=== PATIENT | male | born 1980 | race Caucasian/White ===

== ENCOUNTER 2023-02-19 11:38 | Observation (INO) | payer OTHER ==
[2023-02-19 12:10] LABS: Absolute Lymphocytes (CBC) 1.2 K/uL (0.7-4.9); Hematocrit 45.9 % (39.6-49.0); MCV 93.1 fL (80-100); MPV 8.3 fL (7.6-11.3); Platelets 276 thou/uL (152-406); RBC Red Blood Cell Count 4.93 M/uL (4.33-5.43)
[2023-02-19] MEDS ORDERED: NA CHLORIDE 0.9% 1,000 ML ONE (12:11)
[2023-02-19] MEDS ORDERED: ASPIRIN 81 MG CHEWABLE TABLET ONE (12:11)
[2023-02-19 12:31] LABS: Bilirubin Total 0.6 mg/dL (0.2-1.0); Potassium 4.1 mEq/L (3.5-5.1); Protein, Total 7.5 g/dL (6.4-8.2); Troponin High Sensitivity 6.4 pg/mL (<58.9)
--- NOTE | 2023-02-19 12:40 | EDPHYS ---
Physician Documentation [facility] Name: Jeremi Ball Age: 42 yrs Sex: Male : 1980 Arrival Date: 02/19/2023 Time: 11:38 Bed 15 Private MD: ED Physician Nam Archibald HPI: 02/19 12:35 This 42 yrs old Male presents to ER via Unassigned with complaints of Chest melisa Pain. 12:35 The patient or guardian reports chest pain that is located primarily in the substernal melisa area. Onset: 2 day(s) ago. The pain radiates to the left arm. Associated signs and symptoms: Pertinent positives: lightheadedness. The chest pain is described as aching, squeezing. Duration: The patient or guardian reports multiple episodes, with no pattern. Severity of pain: At its worst the pain was mild moderate in the emergency department the pain has improved mildly. The patient has experienced similar episodes in the past, a few times. Historical: - Allergies: 13:05 No Known Allergies; me1 - Home Meds: 13:05 None [Active]; me1 - PMHx: 13:05 None; me1 - PSHx: 13:05 ankle surgery; me1 - Immunization history:: Adult Immunizations up to date. - Social history:: Smoking status: Patient denies any tobacco usage or history of. - Family history:: not pertinent. ROS: 12:35 Constitutional: Negative for fever, chills, and weight loss, Eyes: Negative for injury, melisa pain, redness, and discharge, ENT: Negative for injury, pain, and discharge, Neck: Negative for injury, pain, and swelling, Respiratory: Negative for shortness of breath, cough, wheezing, and pleuritic chest pain, Abdomen/GI: Negative for abdominal pain, nausea, vomiting, diarrhea, and constipation, Back: Negative for injury and pain, : Negative for injury, bleeding, discharge, and swelling, MS/Extremity: Negative for injury and deformity, Skin: Negative for injury, rash, and discoloration, Neuro: Negative for headache, weakness, numbness, tingling, and seizure, Psych: Negative for depression, anxiety, suicide ideation, homicidal ideation, and hallucinations, Allergy/Immunology: Negative for hives, rash, and allergies, Endocrine: Negative for neck swelling, polydipsia, polyuria, polyphagia, and marked weight changes, Hematologic/Lymphatic: Negative for swollen nodes, abnormal bleeding, and unusual bruising, 12:35 Cardiovascular: Positive for chest pain, of the chest, Exam: 12:35 Constitutional: This is a well developed, well nourished patient who is awake, alert, melisa and in no acute distress. Head/Face: Normocephalic, atraumatic. Eyes: Pupils equal round and reactive to light, extra-ocular motions intact. Lids and lashes normal. Conjunctiva and sclera are non-icteric and not injected. Cornea within normal limits. Periorbital areas with no swelling, redness, or edema. ENT: Nares patent. No nasal discharge, no septal abnormalities noted. Tympanic membranes are normal and external auditory canals are clear. Oropharynx with no redness, swelling, or masses, exudates, or evidence of obstruction, uvula midline. Mucous membranes moist. Neck: Trachea midline, no thyromegaly or masses palpated, and no cervical lymphadenopathy. Supple, full range of motion without nuchal rigidity, or vertebral point tenderness. No Meningismus. Chest/axilla: Normal chest wall appearance and motion. Nontender with no deformity. No lesions are appreciated. Cardiovascular: Regular rate and rhythm with a normal S1 and S2. No gallops, murmurs, or rubs. Normal PMI, no JVD. No pulse deficits. Respiratory: Lungs have equal breath sounds bilaterally, clear to auscultation and percussion. No rales, rhonchi or wheezes noted. No increased work of breathing, no retractions or nasal flaring. Abdomen/GI: Soft, non-tender, with normal bowel sounds. No distension or tympany. No guarding or rebound. No evidence of tenderness throughout. 12:37 ECG was reviewed by the Attending Physician. [facility] Vital Signs: 12:45 BP 124 / 98; Pulse 63; Resp 18; Temp 98.2(O); Pulse Ox 100% on R/A; Weight 104.33 kg; me1 Height 5 ft. 11 in. ; Pain 0/10; 12:45 Body Mass Index 32.08 (104.33 kg, 180.34 cm) [facility] 12:45 Pain Scale: Adult [facility] MDM: 11:45 Patient medically screened. melisa 12:37 Differential diagnosis: abnormal EKG, acute myocardial infarction, acute pericarditis, melisa anxiety, chest wall pain, congestive heart failure Cholelithiasis esophagitis, gastroesophageal reflux disease (GERD), peptic ulcer disease, pericarditis, pneumonia, pulmonary embolus, stable angina, thoracic aortic disection, unstable angina. HEART Score: History: Slightly Suspicious (0), ECG: Non specific repolarization disturbance / LBTB / PM (1), Age: < or = 45 years (0), Risk Factors: 1 or 2 risk factors (1), [+ Family HX] [Obesity] Troponin: < or = 1 x Normal Limit (0). The patient was given aspirin in the Emergency Department. ISELA Risk Score: TOTAL SCORE = 0. Data reviewed: vital signs, nurses notes, lab test result(s), EKG. Consideration of Admission/Observation Patient was admitted/placed on observation. Escalation of care including admission/observation considered. I considered the following discharge prescriptions or medication management in the emergency department Medications were administered in the Emergency Department. See MAR. Independent interpretation of the following test(s) in the Emergency Department EKG: See my EKG interpretation above. Test considered but Not performed: Ultrasound no 2 d echo. Historians other than the Patient: pt well informed. Care significantly affected by the following chronic conditions: Hypertension. Counseling: I had a detailed discussion with the patient and/or guardian regarding the historical points, exam findings, and any diagnostic results supporting the discharge/admit diagnosis, the presence of at least one elevated blood pressure reading (>120/80) during this emergency department visit, lab results, the need for further work-up and treatment in the hospital. 02/19 11:46 Order name: CBC with Diff; Complete Time: 12:31 [facility] 02/19 11:46 Order name: Comprehensive Metabolic Panel; Complete Time: 12:40 melisa 02/19 11:46 Order name: Troponin High Sensitivity; Complete Time: 12:40 melisa 02/19 12:37 Order name: EKG; Complete Time: 12:37 [facility] 02/19 12:45 Order name: CONS Physician Consult EDFL 02/19 12:37 Order name: EKG - Nurse/Tech; Complete Time: 13:11 melisa EC:37 Rate is 70 beats/min. Rhythm is regular. QRS [place] is Normal. OR interval is normal. QRS melisa interval is normal. QT interval is normal. No Q waves. T waves are Normal. No ST changes noted. Clinical impression: NSR w/ Non-specific ST/T Changes and No evidence of ischemia. Interpreted by me. Reviewed by me. Administered Medications: 12:12 Drug: Aspirin PO Chewable Tablet 81 mg PO once Route: PO; kb3 13:11 Follow up: Response: No adverse reaction me1 12:13 Drug: NS 0.9% IV 500 ml IV at bolus once Route: IV; Rate: bolus; Site: left antecubital;kb3 13:11 Follow up: IV Status: Completed infusion me1 12:13 Drug: NS 0.9% IV 1000 ml IV at 125 ml/hr continuous Route: IV; Rate: 125 ml/hr; Site: kb3 left antecubital; 13:11 Follow up: IV Status: Infusion continued upon transfer me1 Disposition Summary: 02/19/23 12:40 Hospitalization Ordered Notes: Hospitalization Status: Observation melisa Provider: Louis Gee cha Location: Telemetry/MedSurg (observation) melisa Condition: Stable melisa Problem: new melisa Symptoms: have improved melisa Bed/Room Type: Standard melisa Room Assignment: melisa Diagnosis - Chest pain, unspecified melisa - Essential (primary) hypertension melisa Forms: - Medication Reconciliation Form melisa - SBAR form melisa - Leadership Thank You Letter melisa Signatures: Dispatcher [employer] Nam Delgado MD MD cha Attema, Lee, WEIGHT REDUCING TECHNICIAN-C WEIGHT REDUCING TECHNICIAN-Cla1 Felicia Bobo, RN RN kb3 Eleanor Jaimes RN RN me1
--- NOTE | 2023-02-19 12:40 | ER ---
Nurse's Notes [facility] Name: Jeremi Ball Age: 42 yrs Sex: Male : 1980 Arrival Date: 02/19/2023 Time: 11:38 Bed 15 Private MD: Diagnosis: Chest pain, unspecified;Essential (primary) hypertension Presentation: 02/19 12:45 Chief complaint: Patient states: Recently worked up for chest pain that it midsternal, me1 does not radiate, intermittent and lasts for seconds at a time, worst pain is "5/10". Seen by Dr Arias and sent to ER be admitted for medical laboratory technical officer today. 12:45 Coronavirus screen: Vaccine status: Patient reports receiving the 2nd dose of the covid me1 vaccine. Ebola Screen: No symptoms or risks identified at this time. Initial Sepsis Screen: Does the patient meet any 2 criteria? No. Patient's initial sepsis screen is negative. Does the patient have a suspected source of infection? No. Patient's initial sepsis screen is negative. Risk Assessment: Do you want to hurt yourself or someone else? Patient reports no desire to harm self or others. Onset of symptoms is unknown. 12:45 Method Of Arrival: Ambulatory me1 12:45 Acuity: RUI 3 me1 Historical: - Allergies: 13:05 No Known Allergies; me1 - Home Meds: 13:05 None [Active]; me1 - PMHx: 13:05 None; me1 - PSHx: 13:05 ankle surgery; me1 - Immunization history:: Adult Immunizations up to date. - Social history:: Smoking status: Patient denies any tobacco usage or history of. - Family history:: not pertinent. Screenin:07 [facility] ED Fall Risk Assessment (Adult) History of falling in the last 3 months, me1 including since admission No falls in past 3 months (0 pts) Confusion or Disorientation No (0 pts) Intoxicated or Sedated No (0 pts) Impaired Gait No (0 pts) Mobility Assist Device Used No (0 pt) Altered Elimination No (0 pt) Score/Fall Risk Level 0 - 2 = Low Risk Maintained a safe environment, Provided non-skid footwear, Hourly rounding (assess needs \\T\\ fall precautionary measures) done. Abuse screen: Denies threats or abuse. Nutritional screening: No deficits noted. Tuberculosis screening: No symptoms or risk factors identified. Assessment: 13:07 General: Appears well groomed, well developed, well nourished, Behavior is calm, me1 cooperative, appropriate for age, Reports Recently worked up for chest pain that it midsternal, does not radiate, intermittent and lasts for seconds at a time, worst pain is "5/10". Denies pain at this time. Pain: Complains of pain in chest Pain does not radiate. Pain currently is 0 out of 10 on a pain scale. at worst was 5 out of 10 on a pain scale. Pain began Is intermittent, lasting a few seconds. Neuro: Level of Consciousness is awake, alert, obeys commands, Oriented to person, place, time, situation, Appropriate for age. Cardiovascular: Capillary refill < 3 seconds Patient's skin is warm and dry. Cardiovascular: Rhythm is sinus rhythm. Respiratory: Airway. Respiratory: Respiratory effort is even, unlabored, Respiratory pattern is regular, symmetrical. Vital Signs: 12:45 BP 124 / 98; Pulse 63; Resp 18; Temp 98.2(O); Pulse Ox 100% on R/A; Weight 104.33 kg; me1 Height 5 ft. 11 in. ; Pain 0/10; 12:45 Body Mass Index 32.08 (104.33 kg, 180.34 cm) me1 12:45 Pain Scale: Adult me1 ED Course: 11:44 Patient arrived in ED. bc6 11:45 Nam Archibald MD is Attending Physician. melisa 12:00 Troponin High Sensitivity Sent. bc6 12:00 Comprehensive Metabolic Panel Sent. bc6 12:00 CBC with Diff Sent. bc6 12:00 Inserted saline lock: 20 gauge in left antecubital area, using aseptic technique. Blood bc6 collected. 12:25 Arm band placed on. ll1 12:39 Louis Gee MD is Hospitalizing Provider. [facility] 12:44 Eleanor Jaimes RN is Primary Nurse. me1 13:05 Triage completed. me1 13:07 No provider procedures requiring assistance completed. Patient maintains SpO2 me1 saturation greater than 95% on room air. 13:07 Patient has correct armband on for positive identification. Placed in gown. Bed in low me1 position. Call light in reach. Side rails up X2. Provided Education on: POC. Verbalized understanding. . Client placed on continuous cardiac and pulse oximetry monitoring. NIBP monitoring applied. groundwater monitoring technician on. Pulse ox on. Administered Medications: 12:12 Drug: Aspirin PO Chewable Tablet 81 mg PO once Route: PO; kb3 13:11 Follow up: Response: No adverse reaction me1 12:13 Drug: NS 0.9% IV 500 ml IV at bolus once Route: IV; Rate: bolus; Site: left antecubital;kb3 13:11 Follow up: IV Status: Completed infusion me1 12:13 Drug: NS 0.9% IV 1000 ml IV at 125 ml/hr continuous Route: IV; Rate: 125 ml/hr; Site: kb3 left antecubital; 13:11 Follow up: IV Status: Infusion continued upon transfer me1 Medication: 13:07 VIS not applicable for this client. me1 Outcome: 12:40 Decision to Hospitalize by Provider. [facility] 13:12 Patient left the ED. me1 Signatures: Nam Archibald MD MD cha Lewis, Lynsay, RN RN ll1 Felicia Bobo, ELIANA RN kb3 Nataliya Watson 6 Eleanor Jaimes RN RN me1 Corrections: (The following items were deleted from the chart) 13:07 12:45 Chief complaint: Patient states: Recently worked up for chest pain that it me1 midsternal, does not radiate, intermittent and lasts for seconds at a time, worst pain is "5/10". Seen by Dr Arias and sent to ER be admitted for medical laboratory technical officer today. me1
[2023-02-19] MEDS ORDERED: NITROGLYCERIN/D5W 25 MG/250 ML BTL IV ONE (12:42)
[2023-02-19] MEDS ORDERED: HEPA 1000U/500MLS 2,000 UNIT/1,000 ML BAG IV ONE (12:42)
[2023-02-19] MEDS ORDERED: LIDOCAINE 1% 20 ML MDV ONE (12:42)
[2023-02-19] MEDS ORDERED: VERAPAMIL HCL 10 MG/4 ML VIAL IV ONE (12:42)
[2023-02-19] MEDS ORDERED: FENTANYL CITR 100 MCG/2 ML ONE (12:43)
[2023-02-19] MEDS ORDERED: MIDAZOLAM HCL 2 MG/2 ML INJ ONE (12:43)
[2023-02-19] MEDS ORDERED: HEPARIN 10,000 UNIT/10 ML VIAL IV ONE (12:44)
[2023-02-19] MEDS ORDERED: HEPARIN 5000 UNIT/ML 1 ML VIAL ONE (12:44)
[2023-02-19] MEDS ORDERED: ASPIRIN 325 MG TAB ONE (12:45)
[2023-02-19] MEDS ORDERED: CLOPIDOGREL 75 MG TABLET ONE (12:45)
--- NOTE | 2023-02-19 12:53 | P.HP ---
Certification for Inpatient Patient admitted to: Observation With expected LOS: <2 Midnights Patient will require the following post-hospital care: None Practitioner: I am a practitioner with admitting privileges, knowledge of patient current condition, hospital course, and medical plan of care. Services: Services provided to patient in accordance with Admission requirements found in Title 42 Section 412.3 of the Code of Federal Regulations Patient History Date of Service: 02/19/23 Reason for admission: Chest pain History of Present Illness: 42-year-old otherwise healthy male presents the emergency department chief complaint of chest pain. He reports ongoing intermittent chest pain for the last 1 week or so. His episodes last for few seconds at a time typically but is having more persistent pain at the moment. Pain is described as pressure, nonradiating. He was evaluated in the emergency department his labs were unremarkable, EKG without STEMI criteria. Cardiology was consulted and recommendation was for heart catheterization. Patient admitted under observation for ACS rule out/heart catheterization. - Past Medical/Surgical History -: None -: Right ankle surgery -: Septal deviation repair Psychosocial/ Personal History: Works as a agriculture technician, lives at home with family - Family History Family History: Reviewed- Non-Contributory - Social History Smoking Status: Never smoker Alcohol use: No CD- Drugs: No Caffeine use: Yes Place of Residence: Home Review of Systems 10-point ROS is otherwise unremarkable Cardiovascular: Chest Pain Physical Examination - Physical Exam General: Alert, In no apparent distress, Oriented x3 HEENT: Atraumatic, PERRLA, EOMI Neck: Supple, 2+ carotid pulse no bruit, No LAD Respiratory: Clear to auscultation bilaterally, Normal air movement Cardiovascular: Regular rate/rhythm, Normal S1 S2 Gastrointestinal: Normal bowel sounds Musculoskeletal: No tenderness Integumentary: No rashes Neurological: Normal speech, Normal strength at 5/5 x4 extr, Normal tone, Normal affect - Studies Laboratory Data (last 24 hrs) 02/19/23 02/19/23 12:00 12:00 WBC 5.80 Hgb 15.9 Hct 45.9 Plt Count 276 Sodium 139 Potassium 4.1 BUN 9 Creatinine 0.83 Glucose 87 Total Bilirubin 0.6 AST 23 ALT 54 Alkaline Phosphatase 64 Assessment and Plan - Plan Assessment: Chest pain rule out ACS Plan: Chest pain rule out ACS Evaluated by cardiology who recommends heart catheterization currently being transported to Tools Administrator Await further recommendations post heart catheterization DVT PPX: Lovenox Code status: Full Dispo 24 hours Discharge Plan: Home Plan to discharge in: 24 Hours - Advance Directives Does patient have a Living Will: No Does patient have a Durable POA for Healthcare: No - Code Status/Comfort Care Code Status Assessed: Yes (Full code) Critical Care: No Time Spent Managing Pts Care (In Minutes): 55
[2023-02-19] MEDS ORDERED: NA CHLORIDE 0.9% 500 ML ONE (13:11)
[2023-02-19] MEDS ORDERED: TICAGRELOR 90 MG TABLET PO ONE (13:54)
[2023-02-19] MEDS ORDERED: ATROPINE SULF 1 MG/10 ML SYR IV ONE (13:54)
--- NOTE | 2023-02-19 15:07 | OP ---
Date of Procedure: 02/19/2023 Surgeon: TRICIA POWELL Procedures Performed: 1.Selective coronary angiogram. 2.Left heart catheterization. Indication: Unstable angina. Access: Right radial artery 6-[place] closed with TR band. Complications: None. Bleeding: Less than 20 mL. Anesthesia: Total sedation time was 45 minutes. Used fentanyl and Versed. Description Of Procedure: After risks, benefits, and alternatives were explained, patient agreed to procedure and signed informed consent. Patient was brought into the cardiac catheterization laborato ry, prepped and draped in usual sterile fashion. Then I accessed right radial artery using pediatric micropuncture kit, placed a 6-[place] Slender sheath and took 5-[place] 5.0 catheter into the ao rtic root, engaged the left main and then the right coronary artery, took standard views and catheter was pushed over the wire into the LV, measured the LVEDP, pullback did not record any gradient, then I removed the catheter and the sheath, placed TR band with good hemostasis. Findings: 1.Left main; large with ostial 10%. 2.LAD; very large, in the proximal segment and mid segment, the artery either tapers down or there i s a long segment of 40% stenosis and diagonal branches are normal. Rest of the LAD is normal. 3.Left circumflex; very large and dominant and supplies the entire inferior wall and no abnormalitie s. 4.RCA; small, nondominant and normal. 5.Elevated LVEDP at 15 mmHg. Conclusion: Mild nonobstructive coronary artery disease. Recommendation: 1.Medical management. 2.Elevated LVEDP, needs better blood pressure control. SR/MODL Voice ID: [id number] Report ID: [id number]
[2023-02-19] MEDS ORDERED: ACETAMINOPHEN 325 MG TABLET ONE (15:56)
[2023-02-19 16:32] VITALS: BMI 32.1
[2023-02-19] MEDS ORDERED: HYDROCODONE/APAP 5/325 MG TAB PO PRN (17:25)
[2023-02-19] MEDS ORDERED: ONDANSETRON 4 MG/2 ML VIAL IV PRN (17:35)
[2023-02-19] MEDS ORDERED: MORPHINE 4 MG/ML SYR IV PRN (17:35)
[2023-02-19] MEDS ORDERED: ACETAMINOPHEN 325 MG TABLET PO PRN (17:39)
[2023-02-19] MEDS ORDERED: DIPHENHYDRAMINE 50 MG/ML VIAL IV ONE (17:45)
[2023-02-19] MEDS ORDERED: KETOROLAC 30 MG/ML INJ IV ONE (17:45)
[2023-02-19] MEDS: NA CHLORIDE 0.9% 1,000 ML IV SCH (17:55)
[2023-02-20] MEDS: NA CHLORIDE 0.9% 1,000 ML IV SCH (03:36)
[2023-02-20 04:12] VITALS: O2SAT 97
[2023-02-20 06:58] LABS: Absolute Lymphocytes (CBC) 1.9 K/uL (0.7-4.9); Hematocrit 42.4 % (39.6-49.0); Lymphocytes % 31.2 % (15.3-44.8); MCV 92.6 fL (80-100); MPV 8.2 fL (7.6-11.3); Platelets 248 thou/uL (152-406); RBC Red Blood Cell Count 4.57 M/uL (4.33-5.43)
[2023-02-20 07:15] LABS: Potassium 4.1 mEq/L (3.5-5.1)
[2023-02-20 08:15] VITALS: BP 147/85
[2023-02-20] MEDS ORDERED: ASPIRIN EC 81 MG TAB PO SCH (09:00)
[2023-02-20] MEDS ORDERED: lisinopriL 10 MG TAB PO SCH (09:00)
[2023-02-20 09:18] VITALS: TEMP 97.1
--- NOTE | 2023-02-20 09:48 | P.DS ---
Admission Date: 02/19/23 Discharge Date: 02/20/23 Reason for Admission: Chest pain Consultations: CardiologyDr. Arias Procedures: Heart catheterization 02/19/2023 Brief History of Present Illness: 42-year-old otherwise healthy male presents the emergency department chief complaint of chest pain. He reports ongoing intermittent chest pain for the last 1 week or so. His episodes last for few seconds at a time typically but is having more persistent pain at the moment. Pain is described as pressure, nonradiating. He was evaluated in the emergency department his labs were unremarkable, EKG without STEMI criteria. Cardiology was consulted and recommendation was for heart catheterization. Patient admitted under observation for ACS rule out/heart catheterization. Hospital Course: Assessment: Chest pain rule out ACS Headache Patient was admitted to the hospital for chest pain, headache. He was evaluated by cardiology and underwent cardiac catheterization on 02/19/2023. He had mild, nonobstructive CAD. Patient also reported he been experiencing a headache for approximate last 1 week or so with associated worsening sinus drainage/cough. He had a recent CT scan at stand-alone emergency department which was negative for acute findings. Of note blood pressure was also elevated 130s to 150s systolic during hospitalization. At discharge patient will be prescribed lisinopril 10 mg daily-he should keep a blood pressure log and follow-up with primary care doctor for further adjustment Discussed headache/sinus drainage symptoms and recommend Flonase inhaled daily for at least the next 2 months If headaches persist and are unrelieved or worsening recommend follow-up with PCP, possibly neurology consult You may take previously prescribed diclofenac sodium as needed for pain or other NSAIDs like ibuprofen, Aleve as well as Tylenol Avoid frequent/regular use of NSAIDs including diclofenac, ibuprofen, Aleve <Antwon Lentz - Last Filed: 02/20/23 09:46> Admission Date: 02/19/23 Discharge Date: 02/20/23 <Louis Gee - Last Filed: 02/20/23 21:40> Disposition: ROUTINE DISCHARGE Discharge Condition: GOOD Vital Signs/Physical Exam: Temp Pulse Resp BP Pulse Ox 97.1 F 63 14 147/85 H 99 02/20/23 07:00 02/20/23 07:00 02/20/23 08:11 02/20/23 08:11 02/20/23 08:11 General: Alert, In no apparent distress, Oriented x3 HEENT: Atraumatic, PERRLA Neck: Supple Respiratory: Normal air movement Cardiovascular: Regular rate/rhythm Gastrointestinal: Non-distended Musculoskeletal: No tenderness Integumentary: No cyanosis Neurological: Normal speech, Normal affect Laboratory Data at Discharge: WBC 6.20 thou/uL (4.3-10.9) 02/20/23 06:40 Hgb 14.6 g/dL (13.6-17.9) D 02/20/23 06:40 Hct 42.4 % (39.6-49.0) 02/20/23 06:40 Plt Count 248 thou/uL (152-406) 02/20/23 06:40 Sodium 142 mEq/L (136-145) 02/20/23 06:40 Potassium 4.1 mEq/L (3.5-5.1) 02/20/23 06:40 BUN 10 mg/dL (7-18) 02/20/23 06:40 Creatinine 0.90 mg/dL (0.70-1.30) 02/20/23 06:40 Glucose 91 mg/dL (74-106) 02/20/23 06:40 Total Bilirubin 0.6 mg/dL (0.2-1.0) 02/19/23 12:00 AST 23 U/L (15-37) 02/19/23 12:00 ALT 54 U/L (16-61) 02/19/23 12:00 Alkaline Phosphatase 64 U/L (45-117) 02/19/23 12:00 <Antwon Lentz - Last Filed: 02/20/23 09:46> Vital Signs/Physical Exam: Temp Pulse Resp BP Pulse Ox 97.1 F 63 14 147/85 H 99 02/20/23 07:00 02/20/23 07:00 02/20/23 08:11 02/20/23 08:11 02/20/23 08:11 Laboratory Data at Discharge: WBC 6.20 thou/uL (4.3-10.9) 02/20/23 06:40 Hgb 14.6 g/dL (13.6-17.9) D 02/20/23 06:40 Hct 42.4 % (39.6-49.0) 02/20/23 06:40 Plt Count 248 thou/uL (152-406) 02/20/23 06:40 Sodium 142 mEq/L (136-145) 02/20/23 06:40 Potassium 4.1 mEq/L (3.5-5.1) 02/20/23 06:40 BUN 10 mg/dL (7-18) 02/20/23 06:40 Creatinine 0.90 mg/dL (0.70-1.30) 02/20/23 06:40 Glucose 91 mg/dL (74-106) 02/20/23 06:40 Total Bilirubin 0.6 mg/dL (0.2-1.0) 02/19/23 12:00 AST 23 U/L (15-37) 02/19/23 12:00 ALT 54 U/L (16-61) 02/19/23 12:00 Alkaline Phosphatase 64 U/L (45-117) 02/19/23 12:00 <Louis Gee - Last Filed: 02/20/23 21:40> Diet: AHA Activity: Ad [place] Time spent managing pt's care (in minutes): 30 <Antwon Lentz - Last Filed: 02/20/23 09:46> Physician Review: Patient Assessed, Agree with Above Assessment and Plan (Patient seen/examined on rounds this morning. Plan reviewed with Antwon Lentz GLOVE MACHINE OPERATOR, as noted above.) <Louis Gee - Last Filed: 02/20/23 21:40> Home Medications: lisinopriL [Lisinopril] 10 mg PO DAILY #30 tab 02/20/23 New Medications: lisinopriL [Lisinopril] 10 mg PO DAILY #30 tab Physician Discharge Instructions: PROBLEM: status post cardiac cath, chest pain GOAL: Clear understanding of disease process INSTRUCTIONS: Please follow-up your primary care doctor within 1 to 2 weeks Follow-up with cardiologyDr. Arias in 2 to 4 weeks Diet: AHA Activity: Per post heart cath instructions Patient was admitted to the hospital for chest pain, headache. He was evaluated by cardiology and underwent cardiac catheterization on 02/19/2023. He had mild, nonobstructive CAD. Patient also reported he been experiencing a headache for approximate last 1 week or so with associated worsening sinus drainage/cough. He had a recent CT scan at stand-alone emergency department which was negative for acute findings. Of note blood pressure was also elevated 130s to 150s systolic during hospitalization. At discharge patient will be prescribed lisinopril 10 mg daily-he should keep a blood pressure log and follow-up with primary care doctor for further adjustment Discussed headache/sinus drainage symptoms and recommend Flonase inhaled daily for at least the next 2 months If headaches persist and are unrelieved or worsening recommend follow-up with P CP, possibly neurology consult You may take previously prescribed diclofenac sodium as needed for pain or other NSAIDs like ibuprofen, Aleve as well as Tylenol Avoid frequent/regular use of NSAIDs including diclofenac, ibuprofen, Aleve Followup: Nam Archibald MD [Primary Care Provider] -
--- NOTE | 2023-02-22 13:48 | EKG ---
Test Date: 2023-02-19 Test Time: 12:52:36 Make Up Girl: MEASUREMENT RESULTS: Intervals: Rate: 62 MA: 184 QRSD: 96 QT: 422 QTc: 428 [place]: P: 10 MA: 184 QRS: 2 T: 59 INTERPRETIVE STATEMENTS: Normal sinus rhythm Normal ECG Compared to ECG 12/30/2008 17:53:49 Sinus bradycardia no longer present Electronically Signed On 02-22-23 13:41:36 NETWORK DEVELOPMENT COORDINATOR by Wilfrido Arias
== END 2023-02-20 10:21 | disposition home or self-care (01) ==
LOC: ER 11:38 → ERHOLD 12:57 → 4TH 15:54
PROVIDERS: ADMIT Hospitalist; ATTEND Hospitalist
PROC: 4A023N7 Measurement of Cardiac Sampling and Pressure, Left Heart, Percutaneous Approach (ICD-10-PCS; principal; 2023-02-19)
PROC: B2111ZZ Fluoroscopy of Multiple Coronary Arteries using Low Osmolar Contrast (ICD-10-PCS; 2023-02-19)
DX: I25.110 Atherosclerotic heart disease of native coronary artery with unstable angina pectoris (principal); R51.9 Headache, unspecified; R05.9 Cough, unspecified; I10 Essential (primary) hypertension
CPT/HCPCS: 93005; 85025 ×2; 80048; 36415; 84484; 80053; 93458; 76937; 96360; 99285; C1893; Q9966; J1644; J2001; J1200; J2250; J3010; G0378 ×5; J7040; J7030 ×3; 99152; 99153; J0461

== ENCOUNTER 2024-06-10 14:21 | Emergency (ER) | payer OTHER ==
[2024-06-10] MEDS ORDERED: ONDANSETRON 4 MG/2 ML VIAL ONE (14:45)
[2024-06-10] MEDS ORDERED: KETOROLAC 30 MG/ML INJ ONE (14:45)
[2024-06-10] MEDS ORDERED: NA CHLORIDE 0.9% 500 ML ONE (14:46)
--- NOTE | 2024-06-10 14:55 | RAD REPORT ---
EXAMINATION: Head Brain Wo Cont CLINICAL INDICATION: Male, 43 years old.HTN, HEADACHE TECHNIQUE: Axial CT images from the skull base to the vertex without intravenous contrast. Coronal an d sagittal reformatted images were created from the data set. One or more of the following dose reduction techniques were used: Automated exposure control, adjustment of the mA and/or kV according to patient size, and/or iterative reconstruction. Unless otherwise specified, incidental findings do not require dedicated imaging follow-up. [id number]. COMPARISON: No prior exam. FINDINGS: INTRACRANIAL: No acute intracranial hemorrhage. No hydrocephalus. No mass effect or midline shift. No significant white matter disease. VASCULATURE: No visualized abnormalities in the arteries or dural venous sinuses. SCALP/SKULL: No calvarial fracture identified. No acute soft tissue abnormality. SINUSES: Mucous retention cyst in left maxillary sinus. Trace right maxillary sinus thickening. No si gnificant mastoid fluid. IMPRESSION: No acute intracranial abnormality.
--- NOTE | 2024-06-10 14:57 | RAD REPORT ---
EXAM: Sinus Wo Cont HISTORY: PAIN COMPARISON: None TECHNIQUE: Multiple contiguous axial images were obtained and a CT of the face without contrast. Sagi ttal and coronal reformats were performed. Automated exposure control, adjustment of the mA and/or kV according to patient size, and/or iterative reconstruction FINDINGS: No facial fractures are identified. No facial soft tissue swelling is seen. The globes and retrobulbar soft tissues are unremarkable. .Mucous retention cyst in the left maxillary sinus. Trace right maxillary sinus thickening. Patent os tiomeatal units. Frontal sinuses, ethmoid air cells, and sphenoid sinuses are well aerated. No air-fluid levels. The mastoid air cells are well aerated. Visualized intracranial structures are unremarkable. IMPRESSION: Mild chronic paranasal sinus disease without evidence of acute sinusitis. The limited par anasal sinus thickening is probably not the source of the patient's symptoms.
--- NOTE | 2024-06-10 15:08 | RAD REPORT ---
EXAM: Chest Single View HISTORY: 43 years Male CHEST PAIN COMPARISON: 12/30/2008 FINDINGS: LUNGS/PLEURA: The lungs are clear. No pleural effusions or pneumothorax. No pulmonary edema. CARDIAC/MEDIASTINUM: The cardiac silhouette is within normal limits. UPPER ABDOMEN: No significant abnormality. BONES: No acute abnormality. LINES/TUBES/OTHER: N/A IMPRESSION: No evidence of acute cardiopulmonary disease.
[2024-06-10 15:25] LABS: Absolute Lymphocytes (CBC) 0.8 K/uL (0.7-4.9); Absolute Monocytes 0.8 K/uL (0.1-1.3); Absolute Neutrophil 9.2 K/uL (1.8-8.0); Basophils % 0.1 % (0-1.3); Eosinophils % 0.1 % (0-4.4); Hemoglobin 15.3 g/dL (13.6-17.9); Lymphocytes % 7.8 % (15.3-44.8); MCH 32.5 pg (27.0-35.0); MCHC 34.7 g/dL (32.0-36.0); MCV 93.7 fL (80-100); MPV 8.8 fL (7.6-11.3); Platelets 251 thou/uL (152-406); RBC Red Blood Cell Count 4.69 M/uL (4.33-5.43); Red Cell Distribution Width 13.6 % (12.1-15.2)
[2024-06-10 15:32] LABS: ALT/SGPT 42 U/L (16-61); AST/SGOT 16 U/L (15-37); Albumin 4.3 g/dL (3.4-5.0); Albumin/Globulin Ratio 1.2 (1.1-1.8); Alkaline Phosphatase 57 U/L (45-117); Anion Gap 6.1 mEq/L (5.0-15.0); BUN Blood Urea Nitrogen 16 mg/dL (7-18); Bicarbonate 30 mEq/L (21-32); Bilirubin Total 0.4 mg/dL (0.2-1.0); Globulin 3.6 g/dL (2.3-3.5); Glomerular Filtration Rate 95 ml/min (=/>90); Glucose Level 118 mg/dL (74-106); Potassium 4.1 mEq/L (3.5-5.1); Protein, Total 7.9 g/dL (6.4-8.2); Sodium Level 139 mEq/L (136-145); Troponin High Sensitivity < 3.0 pg/mL (<58.9)
--- NOTE | 2024-06-10 16:18 | ER ---
Nurse's Notes [facility] Name: Jeremi Ball Age: 43 yrs Sex: Male : 1980 Arrival Date: 06/10/2024 Time: 14:21 Bed 11 Private MD: Diagnosis: Chest pain, unspecified;Headache;Essential (primary) hypertension;Chronic sinusitis, unspecified Presentation: 06/10 14:36 Chief complaint: Patient states: chest discomfort, flushed face, headache, does not kj2 feel well. Coronavirus screen: Client denies travel out of the [place] in the last 14 days. Ebola Screen: No symptoms or risks identified at this time. Initial Sepsis Screen: Does the patient meet any 2 criteria? No. Patient's initial sepsis screen is negative. Does the patient have a suspected source of infection? No. Patient's initial sepsis screen is negative. Risk Assessment: Do you want to hurt yourself or someone else? Patient reports no desire to harm self or others. Onset of symptoms was June 08, 2024. 14:36 Method Of Arrival: Ambulatory kj2 14:36 Acuity: RUI 3 kj2 Triage Assessment: 14:39 General: Appears in no apparent distress. Behavior is calm, cooperative. Pain: kj2 Complains of pain in chest, forehead Pain currently is 6 out of 10 on a pain scale. Neuro: Level of Consciousness is awake, alert, obeys commands, Oriented to person, place, time, situation. Cardiovascular: Patient's skin is warm and dry. Respiratory: Airway is patent Respiratory effort is even, unlabored. GI: No signs and/or symptoms were reported involving the gastrointestinal system. : No signs and/or symptoms were reported regarding the genitourinary system. Historical: - Allergies: 14:39 No Known Allergies; kj2 - PSHx: 15:21 ankle surgery; kj2 - Immunization history:: Adult Immunizations unknown. - Infectious Disease History:: Denies. - Social history:: Smoking status: Patient denies any tobacco usage or history of. Screenin:45 [facility] ED Fall Risk Assessment (Adult) History of falling in the last 3 months, kj2 including since admission No falls in past 3 months (0 pts) Confusion or Disorientation No (0 pts) Intoxicated or Sedated No (0 pts) Impaired Gait No (0 pts) Mobility Assist Device Used No (0 pt) Altered Elimination No (0 pt) Score/Fall Risk Level 0 - 2 = Low Risk Maintained a safe environment, Hourly rounding (assess needs \T\ fall precautionary measures) done. Abuse screen: Denies threats or abuse. Denies injuries from another. Nutritional screening: No deficits noted. Tuberculosis screening: No symptoms or risk factors identified. Assessment: 14:40 General: see triage assessment. kj2 14:40 Pain: Pain does not radiate. Pain began 2-3 days ago. kj2 15:39 Reassessment: Patient appears in no apparent distress at this time. Patient and/or kj2 family updated on plan of care and expected duration. Pain level reassessed. Patient is alert, oriented x 3, equal unlabored respirations, skin warm/dry/pink. Vital Signs: 14:36 BP 140 / 88; Pulse 70; Resp 20; Temp 97.9; Pulse Ox 100% ; Weight 106.59 kg; Height 5 kj2 ft. 11 in. ; 15:40 BP 122 / 81; Pulse 66; Resp 18; Temp 98; Pulse Ox 100% on R/A; kj2 16:35 BP 121 / 82; Pulse 68; Resp 20; Temp 98; Pulse Ox 100% on R/A; kj2 14:36 Body Mass Index 32.78 (106.59 kg, 180.34 cm) kj2 Eric Coma Score: 15:16 Eye Response: spontaneous(4). Motor Response: obeys commands(6). Verbal Response: melisa oriented(5). Total: 15. ED Course: 14:27 Patient arrived in ED. ll1 14:27 Nam Archibald MD is Attending Physician. melisa 14:35 Kavya Tompkins, ELIANA is Primary Nurse. kj2 14:39 Triage completed. kj2 14:47 CT Sinus Wo Cont In Process Unspecified. EDMS 14:47 Head Brain Wo Cont In Process Unspecified. EDMS 14:55 Inserted saline lock: 20 gauge in right antecubital area, using aseptic technique. kj2 Blood collected. Flushed with 10 mL NS. 15:04 Patient has correct armband on for positive identification. Bed in low position. Call kj2 light in reach. Provided Education on: calllight. Client placed on continuous cardiac and pulse oximetry monitoring. NIBP monitoring applied. monitor car operator on. Pulse ox on. 15:05 Arm band placed on Patient placed in an exam room, on a stretcher. kj2 15:06 Chest Single View XRAY In Process Unspecified. EDNJ 15:20 EKG done, by ED staff, reviewed by Nam Archibald MD. kj2 16:26 No provider procedures requiring assistance completed. IV discontinued, intact, kj2 bleeding controlled, No redness/swelling at site. Pressure dressing applied. Patient maintains SpO2 saturation greater than 95% on room air. Administered Medications: 15:03 Drug: NS 0.9% IV 500 ml 500 ml IV at 1 bolus once; to be given as a bolus over 30 kj2 minutes Volume: 500 ml; Route: IV; Rate: 1 bolus; Site: right antecubital; 15:03 Drug: Ketorolac IVP 30 mg IVP once Route: IVP; Site: right antecubital; kj2 16:27 Follow up: Response: No adverse reaction kj2 15:03 Drug: Ondansetron IVP 4 mg IVP once; over 2 minutes Route: IVP; Site: right antecubital;kj2 16:27 Follow up: Response: No adverse reaction kj2 Medication: 15:05 VIS not applicable for this client. kj2 Outcome: 16:17 Discharge ordered by . melisa 16:26 Discharged to home ambulatory, kj2 16:26 Condition: stable 16:26 Discharge instructions given to patient, Instructed on discharge instructions, follow up and referral plans. Demonstrated understanding of instructions, follow-up care, Prescriptions given X 3, 16:44 Patient left the ED. kj2 Signatures: Dispatcher [employer] EDNJ Nam Archibald MD MD cha Lewis, Lynsay, RN RN ll1 Kavya Tompkins, ELIANA RN kj2 Corrections: (The following items were deleted from the chart) 15:39 15:20 Reassessment: Patient appears in no apparent distress at this time. Patient kj2 and/or family updated on plan of care and expected duration. Pain level reassessed. Patient is alert, oriented x 3, equal unlabored respirations, skin warm/dry/pink. kj2
--- NOTE | 2024-06-10 16:18 | EDPHYS ---
Physician Documentation [facility] Name: Jeremi Ball Age: 43 yrs Sex: Male : 1980 Arrival Date: 06/10/2024 Time: 14:21 Bed 11 Private MD: ED Physician Nam Archibald HPI: 06/10 15:13 This 43 yrs old Male presents to ER via Ambulatory with complaints of Chest melisa Pain, Headache. 15:13 The patient or guardian reports chest pain that is located primarily in the anterior melisa chest wall, left. Onset: 1 week(s) ago. The pain does not radiate. The chest pain is described as aching. Historical: - Allergies: 14:39 No Known Allergies; kj2 - PSHx: 15:21 ankle surgery; kj2 - Immunization history:: Adult Immunizations unknown. - Infectious Disease History:: Denies. - Social history:: Smoking status: Patient denies any tobacco usage or history of. ROS: 15:14 Constitutional: Negative for fever, chills, and weight loss, Eyes: Negative for injury, melisa pain, redness, and discharge, Neck: Negative for injury, pain, and swelling, Cardiovascular: Negative for chest pain, palpitations, and edema, Respiratory: Negative for shortness of breath, cough, wheezing, and pleuritic chest pain, Abdomen/GI: Negative for abdominal pain, nausea, vomiting, diarrhea, and constipation, Back: Negative for injury and pain, : Negative for injury, bleeding, discharge, and swelling, MS/Extremity: Negative for injury and deformity, Skin: Negative for injury, rash, and discoloration, Neuro: Negative for headache, weakness, numbness, tingling, and seizure, Psych: Negative for depression, anxiety, suicide ideation, homicidal ideation, and hallucinations, Allergy/Immunology: Negative for hives, rash, and allergies, Endocrine: Negative for neck swelling, polydipsia, polyuria, polyphagia, and marked weight changes, 15:14 ENT: Positive for rhinorrhea, sinus congestion, sinus pain, sore throat, 15:14 Neck: Negative for injury or acute deformity, mass, pain with movement, pain at rest, stiffness, swelling, swollen nodes, tenderness, bony tenderness, 15:14 Cardiovascular: Positive for palpitations, Negative for chest pain, 15:14 Respiratory: Positive for cough, 15:14 Abdomen/GI: Negative for abdominal pain, nausea and vomiting, 15:14 MS/extremity: Negative for decreased range of motion, pain, swelling, tenderness, Exam: 15:16 Constitutional: This is a well developed, well nourished patient who is awake, alert, melisa and in no acute distress. Head/Face: Normocephalic, atraumatic. Eyes: Pupils equal round and reactive to light, extra-ocular motions intact. Lids and lashes normal. Conjunctiva and sclera are non-icteric and not injected. Cornea within normal limits. Periorbital areas with no swelling, redness, or edema. ENT: Nares patent. No nasal discharge, no septal abnormalities noted. Tympanic membranes are normal and external auditory canals are clear. Oropharynx with no redness, swelling, or masses, exudates, or evidence of obstruction, uvula midline. Mucous membranes moist. Neck: Trachea midline, no thyromegaly or masses palpated, and no cervical lymphadenopathy. Supple, full range of motion without nuchal rigidity, or vertebral point tenderness. No Meningismus. Chest/axilla: Normal chest wall appearance and motion. Nontender with no deformity. No lesions are appreciated. Cardiovascular: Regular rate and rhythm with a normal S1 and S2. No gallops, murmurs, or rubs. Normal PMI, no JVD. No pulse deficits. Respiratory: Lungs have equal breath sounds bilaterally, clear to auscultation and percussion. No rales, rhonchi or wheezes noted. No increased work of breathing, no retractions or nasal flaring. Abdomen/GI: Soft, non-tender, with normal bowel sounds. No distension or tympany. No guarding or rebound. No evidence of tenderness throughout. Back: No spinal tenderness. No costovertebral tenderness. Full range of motion. Skin: Warm, dry with normal turgor. Normal color with no rashes, no lesions, and no evidence of cellulitis. MS/ Extremity: Pulses equal, no cyanosis. Neurovascular intact. Full, normal range of motion., bilateral aka Neuro: Awake and alert, GCS 15, oriented to person, place, time, and situation. Cranial nerves II-XII grossly intact. Motor strength 5/5 in all extremities. Sensory grossly intact. Cerebellar exam normal. Normal gait. Psych: Awake, alert, with orientation to person, place and time. Behavior, mood, and affect are within normal limits. 15:16 ECG was reviewed by the Attending Physician. 15:20 ECG was reviewed by the Attending Physician. [facility] Vital Signs: 14:36 BP 140 / 88; Pulse 70; Resp 20; Temp 97.9; Pulse Ox 100% ; Weight 106.59 kg; Height 5 kj2 ft. 11 in. ; 15:40 BP 122 / 81; Pulse 66; Resp 18; Temp 98; Pulse Ox 100% on R/A; kj2 16:35 BP 121 / 82; Pulse 68; Resp 20; Temp 98; Pulse Ox 100% on R/A; kj2 14:36 Body Mass Index 32.78 (106.59 kg, 180.34 cm) kj2 Eric Coma Score: 15:16 Eye Response: spontaneous(4). Motor Response: obeys commands(6). Verbal Response: melisa oriented(5). Total: 15. MDM: 14:27 Medical Screening Exam initiated [facility] 15:16 Data reviewed: vital signs, nurses notes, lab test result(s), EKG, radiologic studies, [facility] CT scan. Consideration of Admission/Observation Escalation of care including admission/observation considered. Independent interpretation of the following test(s) in the Emergency Department EKG: See my EKG interpretation above. 06/10 14:30 Order name: CBC with Diff; Complete Time: 16:08 [facility] 06/10 14:30 Order name: CMP; Complete Time: 16:08 [facility] 06/10 14:30 Order name: Troponin HS; Complete Time: 16:08 [facility] 06/10 14:30 Order name: CT Sinus Wo Cont; Complete Time: 16:08 [facility] 06/10 14:30 Order name: Chest Single View XRAY; Complete Time: 16:08 [facility] 06/10 14:44 Order name: Head Brain Wo Cont; Complete Time: 16:08 EDMS 06/10 14:30 Order name: EKG - Nurse/Tech; Complete Time: 15:51 [facility] EC:20 Rate is 67 beats/min. Rhythm is regular. QRS [place] is Normal. [place] interval is normal. QRS melisa interval is normal. QT interval is normal. No Q waves. T waves are Normal. No ST changes noted. Clinical impression: Normal ECG and No evidence of ischemia. Interpreted by me. Reviewed by me. Administered Medications: 15:03 Drug: NS 0.9% IV 500 ml 500 ml IV at 1 bolus once; to be given as a bolus over 30 kj2 minutes Volume: 500 ml; Route: IV; Rate: 1 bolus; Site: right antecubital; 15:03 Drug: Ketorolac IVP 30 mg IVP once Route: IVP; Site: right antecubital; kj2 16:27 Follow up: Response: No adverse reaction kj2 15:03 Drug: Ondansetron IVP 4 mg IVP once; over 2 minutes Route: IVP; Site: right antecubital;kj2 16:27 Follow up: Response: No adverse reaction kj2 Disposition Summary: 06/10/24 16:17 Discharge Ordered Notes: Location: Home melisa Problem: new melisa Symptoms: have improved melisa Condition: Stable melisa Diagnosis - Chest pain, unspecified melsia - Headache melisa - Essential (primary) hypertension melisa - Chronic sinusitis, unspecified melisa Followup: melisa - With: Private Physician - When: 2 - 3 days - Reason: Recheck today's complaints, Continuance of care, Re-evaluation by your physician Discharge Instructions: - Discharge Summary Sheet melisa - Nonspecific Chest Pain, Adult melisa - Hypertension, Adult melisa - Sinusitis, Adult melisa - Sinusitis, Adult, [id number] melisa - Nonspecific Chest Pain, Adult, [id number] melisa - Hypertension, Adult, [id number] melisa - How to Take Your Blood Pressure, [id number] melisa - Aspirin and Your Heart melisa - Managing Your Hypertension [facility] Forms: - Medication Reconciliation Form [facility] - Antibiotic Education melisa - Prescription Opioid Use melisa - Patient Portal Instructions [facility] - Leadership Thank You Letter [facility] Prescriptions: - Augmentin 875-125 mg Oral Tablet - take 1 tablet ORAL route every 12 hours for 10 days; 20 tablet; Refills: 0, [facility] Product Selection Permitted - Norvasc 5 mg Oral Tablet - take 1 tablet ORAL route once daily; 20 tablet; Refills: 0, Product Selection [facility] Permitted - Pepcid 20 mg Oral tablet - take 1 tablet ORAL route every 12 hours for 21 days; 42 tablet; Refills: 0, [facility] Product Selection Permitted - Xanax 0.5 mg Oral tablet - take 1 tablet ORAL route every 8 hours As needed prn anxiety; 20 tablet; [facility] Refills: 0, Product Selection Permitted Signatures: Dispatcher [employer] Nam Delgado MD MD cha Jordan, Krystal, RN RN kj2 Corrections: (The following items were deleted from the chart) 14:30 14:30 CBC+H.LAB.BRZ ordered. EDMS EDMS 14:30 14:30 COMPREHENSIVE METABOLIC PANEL+C.LAB.BRZ ordered. EDMS EDMS 14:30 14:30 Troponin High Sensitivity+C.LAB.BRZ ordered. EDMS EDMS 14:30 14:30 Sinus Wo Cont+CT.RAD.BRZ ordered. EDMS EDMS 14:30 14:30 Chest Single View+RAD.RAD.BRZ ordered. EDMS EDMS
[2024-06-10 17:38] VITALS: O2SAT 100
[2024-06-10 17:39] VITALS: TEMP 98
[2024-06-10 17:40] VITALS: BP 121/82
--- NOTE | 2024-06-11 12:11 | EKG ---
Test Date: 2024-06-10 Test Time: 15:16:35 Guide Plant: NERI MEASUREMENT RESULTS: Intervals: Rate: 67 AR: 172 QRSD: 96 QT: 408 QTc: 431 [place]: P: 39 AR: 172 QRS: -12 T: 56 INTERPRETIVE STATEMENTS: Normal sinus rhythm Normal ECG Compared to ECG 02/19/2023 12:52:36 No significant changes Electronically Signed On 06-11-24 12:08:59 CDT by Charlie Gonzalez
== END 2024-06-10 16:44 | disposition home or self-care (01) ==
LOC: ER 14:21
DX: I10 Essential (primary) hypertension (principal); J32.9 Chronic sinusitis, unspecified; R51.9 Headache, unspecified
CPT/HCPCS: 93005; 85025; 36415; 84484; 80053; 70450; 70486; 71045; 96375; 96374; 99285; J2405; J7040